=== PATIENT | female | born 2000 | race Caucasian/White ===

== ENCOUNTER 2021-12-13 08:11 | Inpatient (IN) | payer BC ==
[2021-12-13] MEDS ORDERED: Bupivacaine 0.5% 30 ML SDV ONE (08:28)
[2021-12-13] MEDS ORDERED: Sodium Chloride 0.9% 10 ML Syringe FLUSH PRN (08:45)
[2021-12-13] MEDS ORDERED: ceFAZolin 2 GM in Sodium Chloride 0.9% 50 ML IV ONE (08:45)
[2021-12-13] MEDS ORDERED: Citric Acid/Sodium Citrate Solution 30 ML Cup PO ONE (08:45)
[2021-12-13] MEDS ORDERED: Lactated Ringers 1,000 ML IV SCH (08:45)
[2021-12-13] MEDS ORDERED: Oxytocin/Lactated Ringers 10 UNIT/1,000 ML BAG IV SCH (08:45)
[2021-12-13] MEDS ORDERED: Sodium Chloride 0.9% 10 ML Syringe FLUSH SCH (09:00)
[2021-12-13] MEDS ORDERED: Azithromycin 500 MG in Sodium Chloride 0.9% 250 ML IV ONE (09:00)
[2021-12-13] MEDS ORDERED: Propofol 200 MG/20 ML SDV ONE (09:39)
[2021-12-13] MEDS ORDERED: Oxytocin 10 Units/1 ML SDV ONE ×2 (09:40→10:16)
[2021-12-13] MEDS ORDERED: ceFAZolin 2 GM Vial ONE (09:40)
[2021-12-13] MEDS ORDERED: Succinylcholine 200 MG/10 ML MDV ONE (09:40)
[2021-12-13] MEDS ORDERED: HYDROmorphone 0.5 MG/0.5 ML Syringe ONE ×2 (10:12→10:31)
[2021-12-13] MEDS ORDERED: Methylergonovine 0.2 MG/1 ML Amp ONE (10:19)
[2021-12-13] MEDS ORDERED: Ketorolac 30 MG/ML SDV ONE (10:25)
[2021-12-13] MEDS ORDERED: fentaNYL 100 MCG/2 ML SDV ONE (10:27)
[2021-12-13] MEDS ORDERED: Ketamine 500 mg/10 ML MDV ONE (10:38)
[2021-12-13] MEDS ORDERED: Ondansetron 4 MG/2 ML SDV ONE (10:48)
[2021-12-13] MEDS ORDERED: diphenhydrAMINE 50 MG/ML SDV ONE (10:49)
[2021-12-13] MEDS ORDERED: fentaNYL 100 MCG/2 ML SDV IVPUSH PRN (11:26)
[2021-12-13] MEDS ORDERED: HYDROmorphone 0.5 MG/0.5 ML Syringe IVPUSH PRN (11:26)
[2021-12-13] MEDS ORDERED: Ondansetron 4 MG/2 ML SDV IVPUSH PRN (11:26)
[2021-12-13] MEDS ORDERED: diphenhydrAMINE 50 MG/ML SDV IVPUSH ONE (12:45)
[2021-12-13] MEDS ORDERED: Sodium Chloride 0.9% 500 ML IV SCH (12:45)
[2021-12-13] MEDS ORDERED: Dextrose 5%-Lactated Ringers 1,000 ML IV SCH (13:52)
[2021-12-13] MEDS ORDERED: ePHEDrine 50 MG/ML SDV IVPUSH PRN (13:52)
[2021-12-13] MEDS ORDERED: Ondansetron 4 MG/2 ML SDV IV PRN (13:52)
[2021-12-13] MEDS ORDERED: Naloxone 0.4 MG/ML SDV IVPUSH PRN (13:52)
[2021-12-13] MEDS ORDERED: diphenhydrAMINE 50 MG/ML SDV IVPUSH PRN (13:52)
[2021-12-13] MEDS: Docusate Sodium 100 MG Cap PO SCH (14:12)
[2021-12-13] MEDS: Simethicone 80 MG Tab.Chew PO SCH (17:45)
[2021-12-13] MEDS: Acetaminophen/oxyCODONE 325-5 MG Tab PO PRN (17:45)
[2021-12-14] MEDS: Acetaminophen/oxyCODONE 325-5 MG Tab PO PRN ×3 (00:32→19:21)
[2021-12-14] MEDS: Simethicone 80 MG Tab.Chew PO SCH ×4 (00:34→19:20)
[2021-12-14] MEDS: Ibuprofen 600 MG Tab PO PRN ×3 (04:12→19:20)
[2021-12-14] MEDS: Docusate Sodium 100 MG Cap PO SCH ×3 (12:50→19:20)
[2021-12-15] MEDS: Docusate Sodium 100 MG Cap PO SCH ×2 (07:38→14:19)
[2021-12-15] MEDS: Simethicone 80 MG Tab.Chew PO SCH ×3 (08:22→14:19)
[2021-12-15] MEDS: Acetaminophen/oxyCODONE 325-5 MG Tab PO PRN ×2 (08:22→14:19)
[2021-12-15] MEDS: Ibuprofen 600 MG Tab PO PRN ×2 (08:23→14:20)
== END 2021-12-15 14:50 | disposition home or self-care (01) | DRG 540 ==
LOC: JD.OB 08:11
PROVIDERS: ADMIT Obstetrics & Gynecology; ATTEND Obstetrics & Gynecology
PROC: 10D00Z1 Extraction of Products of Conception, Low, Open Approach (ICD-10-PCS; principal; 2021-12-13)
PROC: 10907ZC Drainage of Amniotic Fluid, Therapeutic from Products of Conception, Via Natural or Artificial Opening (ICD-10-PCS; 2021-12-13)
DX: O48.0 Post-term pregnancy (principal); Z37.0 Single live birth; O99.12 Other diseases of the blood and blood-forming organs and certain disorders involving the immune mechanism complicating childbirth; D69.6 Thrombocytopenia, unspecified; O62.1 Secondary uterine inertia; O99.02 Anemia complicating childbirth; D64.9 Anemia, unspecified; Z88.8 Allergy status to other drugs, medicaments and biological substances; Z3A.40 40 weeks gestation of pregnancy
CPT/HCPCS: 01961; 36415; 36430; 59025; 80053; 85025; 85027; 86592; 86850; 86900; 86901; A9270-GY; J0330; J0456; J0690; J1170; J1200; J1885; J2210; J2405; J2590; J2704; J3010; J3490; J7040; J7050; J7121; P9034